=== PATIENT | female | born 1945 | race Caucasian/White ===

== ENCOUNTER 2018-09-26 11:28 | Emergency (ER) | payer MEDICARE, BC ==
[2018-09-26 12:05] VITALS: TEMP 98.4
[2018-09-26 12:24] LABS: ALBUMIN 2.4 gm/dl (3.4-5.0); BILIRUBIN,TOTAL 0.2 mg/dl (0.2-1.0); CALCIUM 9.1 mg/dl (8.5-10.1); CARBON DIOXIDE 27.7 mEq/L (21-32); CREATININE 0.74 mg/dl (0.60-1.00); INR 1.02 (0.87-1.13); TOTAL PROTEIN 6.8 gm/dl (6.4-8.2)
[2018-09-26 13:28] LABS: BASOPHILS % (AUTO) 1 % (0-3); EOSINOPHILS % (AUTO) 1 % (0-9); HEMATOCRIT 34 % (35-47); HEMOGLOBIN 11.1 gm/dl (12.0-15.5); LYMPHOCYTES % (AUTO) 5.6 % (10-50); MEAN CORPUSCULAR HEMOGLOBIN 27.5 pg (27.0-32.0); MEAN CORPUSCULAR HGB CONC 32.9 gm/dl (32.0-36.0); MEAN CORPUSCULAR VOLUME 84 fL (81-99); MONOCYTES % (AUTO) 6.1 % (0-12); NEUTROPHILS % (AUTO) 86.4 % (37-80)
[2018-09-26] MEDS ORDERED: ONDANSETRON HCL 4 MG/2 ML SOL ONE (13:54)
[2018-09-26] MEDS ORDERED: HYDROMORPHONE 1 MG/ML SYRINGE ONE (13:54)
[2018-09-26] MEDS: SODIUM CHLORIDE 0.9% FLUSH 10 ML SOL IV PRN (13:55)
[2018-09-26] MEDS: ONDANSETRON HCL 4 MG/2 ML SOL IV ONE (13:55)
[2018-09-26 13:58] LABS: APPEARANCE,URINE Slightly Cloudy; BILIRUBIN,URINE NEGATIVE (NEGATIVE); COLOR,URINE Yellow; GLUCOSE, URINE (UA) NEGATIVE (NEGATIVE); KETONES,URINE NEGATIVE (NEGATIVE); LEUKOCYTE ESTERASE ,URINE TRACE (NEGATIVE); NITRATE,URINE NEGATIVE (NEGATIVE); OCCULT BLOOD,URINE NEGATIVE (NEG-TRACE); PH,URINE 7.5; UROBILINOGEN,URINE 0.2 (0.2-1.0 EU)
[2018-09-26] MEDS: HYDROMORPHONE HCL 2 MG/ML SOL IV ONE (13:58)
[2018-09-26 14:03] LABS: RBC,URINE NEG (0-3AV/HPF)
[2018-09-26 14:04] LABS: BACTERIA NEGATIVE (< 1+); CRYSTALS 1+ AMORPH PHOSPHATES (0-3 AVE/HPF)
[2018-09-26 14:15] VITALS: BP 135/75; PULSE 79; RESP 18; O2SAT 93
== END 2018-09-26 14:20 | disposition short-term general hospital (02) | DRG 536 ==
LOC: ED 11:28
DX: S72.101A Unspecified trochanteric fracture of right femur, initial encounter for closed fracture (principal)
CPT/HCPCS: 36415; 73501; 80053; 81001; 85025; 85610; 85730; 87088; 93005; 96374; 96375; 99285; 99291; J2405; J1170

== ENCOUNTER 2018-10-07 10:10 | Emergency (ER) | payer MEDICARE, BC ==
[2018-10-07 11:45] VITALS: TEMP 98.8
[2018-10-07 16:12] VITALS: RESP 18
[2018-10-07 16:14] VITALS: BP 117/73; PULSE 78; O2SAT 97
== END 2018-10-07 15:46 | DRG 563 ==
LOC: ED 10:10
DX: S82.102A Unspecified fracture of upper end of left tibia, initial encounter for closed fracture (principal)
CPT/HCPCS: 29505; 73560; 73590; 99284